=== PATIENT | male | born 1995 | race Caucasian/White ===

== ENCOUNTER 2018-08-06 20:18 | Emergency (ER) | payer BC ==
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
[2018-08-06] MEDS ORDERED: Adacel (T-DAP) 0.5 ML SYRINGE ONE (21:27)
== END 2018-08-06 22:39 | disposition home or self-care (01) ==
LOC: ERS 20:18
DX: S06.0X9A Concussion with loss of consciousness of unspecified duration, initial encounter (principal); V19.9XXA Pedal cyclist (driver) (passenger) injured in unspecified traffic accident, initial encounter
CPT/HCPCS: 70450; 70486; 72125; 90471; 90715; G0390